=== PATIENT | female | born 1935 | race Caucasian/White ===

== ENCOUNTER 2017-05-17 14:20 | Emergency (ER) | payer OTHER ==
[~2017-05-17] VITALS: Ht 152.4 cm; Wt 58.0 kg
[2017-05-17 14:49] VITALS: BP 144/65; PULSE 70; RESP 17; TEMP 98.4; O2SAT 97
[2017-05-17] MEDS ORDERED: LISI-515 PO (14:56)
[2017-05-17] MEDS ORDERED: ISOS30TA3 PO (14:56)
[2017-05-17] MEDS ORDERED: METO1TAB9 PO (14:56)
[2017-05-17] MEDS ORDERED: ATOR80TA45 PO (14:56)
[2017-05-17] MEDS ORDERED: METF1000 PO (14:56)
[2017-05-17] MEDS ORDERED: GLIP5TAB8 PO (14:56)
[2017-05-17] MEDS ORDERED: CITA20TA4 PO (14:56)
[2017-05-17] MEDS ORDERED: HYDR25TA5 PO (14:56)
[2017-05-17] MEDS ORDERED: OMEP20TA93 PO (14:56)
[2017-05-17] MEDS ORDERED: TRAZ50TA12 PO (14:56)
[2017-05-17] MEDS ORDERED: SODIUM CHLORIDE 0.9% FLUSH 10 ML FLUSH IVF PRN (15:00)
[2017-05-17] MEDS ORDERED: ONDANSETRON HCL 4 MG/2 ML VIAL IVP ONE (15:00)
--- NOTE | 2017-05-17 15:04 | PD ---
HPI Chief Complaint: Fall Time Seen by Provider: 14:46 Travel History International Travel<30 days: No Contact w/Intl Traveler<30days: No Traveled to known affect area: No History of Present Illness HPI The patient is a 81-year-old female who presents to the emergency department via EMS for right hip pain. The patient states she was at the pole earlier today, was rearranging her chair when she tripped and fell landing on her right hip. The patient states she landed on concrete. The patient complains right hip pain, was unable to bear weight after the fall secondary to pain. She denies any loss of consciousness during the fall. She denies any headache, neck pain, shortness of breath, nausea, vomiting, or abdominal pain. She did complain of mild chest pain that developed afterwards, chew be fitted to her angina. The patient was diagnosed with angina by her director of property management in [place], was placed on nitrates and beta blockers after she underwent cardiac catheterization last year. She states there were no stents placed at that time. She did take a nitroglycerin last night for her chest pain, states her last previous episode of angina was several months ago. Pain is located over the lateral right hip, nonradiating, worse with movement and palpation, alleviated at rest. PFSH Past Medical History Depression: Yes High Cholesterol: Yes Chest Pain: Yes Coronary Artery Disease: Yes Diabetes: Yes Patient Takes Glucophage: Yes Hypertension: Yes Insomnia: Yes ?: Not Past Surgical History Appendectomy: Yes Cholecystectomy: Yes Social History Alcohol Use: No Tobacco Use: No Substance Use: No Allergies-Medications (Allergen,Severity, Reaction): Coded Allergies: No Known Allergies (Unverified , 05/17/17) Reported Meds & Prescriptions Reported Meds & Active Scripts Active [facility] (Hydrocodone-Acetaminophen) 5 Mg-325 Mg Tab 1 Tab PO Q6H PRN Reported Metoprolol Succinate ER 24 HR (Metoprolol Succinate) 50 Mg Tab 50 Mg PO DAILY Omeprazole 20 Mg Tab 20 Mg PO DAILY Metformin (Metformin HCl) 1,000 Mg Tab 1,000 Mg PO BIDPC Isosorbide Mononitrate ER (Isosorbide Mononitrate) 30 Mg Rubin 30 Mg PO DAILY Citalopram (Citalopram Hydrobromide) 20 Mg Tab 20 Mg PO DAILY Hydrochlorothiazide 25 Mg Tab 25 Mg PO DAILY Atorvastatin (Atorvastatin Calcium) 80 Mg Tab 80 Mg PO HS Lisinopril 20 Mg Tab 20 Mg PO DAILY Trazodone (Trazodone HCl) 50 Mg Tab 50 Mg PO HS Glipizide 5 Mg Tab 5 Mg PO DAILY Take 30 minutes before a meal Review of Systems Except as stated in HPI: all other systems reviewed are Neg General / Constitutional: No: Fever HENT: No: Lightheadedness Cardiovascular: Positive: Chest Pain or Discomfort, No: Diaphoresis Respiratory: No: Shortness of Breath Gastrointestinal: No: Nausea, Vomiting, Abdominal Pain Musculoskeletal: Positive: Pain Neurologic: No: Headache, Change in Mentation, Paresthesia, Sensory Disturbance Physical Exam Narrative GENERAL: Awake, alert, pleasant 81-year-old female who appears her stated age and is in no acute respiratory distress. SKIN: Focused skin assessment warm/dry. HEAD: Atraumatic. Normocephalic. EYES: Pupils equal and round. No scleral icterus. No injection or drainage. ENT: No nasal bleeding or discharge. Mucous membranes pink and moist. NECK: Trachea midline. No JVD. CARDIOVASCULAR: Regular rate and rhythm. No murmur appreciated. RESPIRATORY: No accessory muscle use. Clear to auscultation. Breath sounds equal bilaterally. GASTROINTESTINAL: Abdomen soft, non-tender, nondistended. MUSCULOSKELETAL: No obvious deformities. No obvious leg length discrepancy. The patient is able flex the right hip to 90, mild pain with internal/external rotation. Tender to palpation lateral aspect of the right hip. No obvious ecchymosis. Positive right dorsalis pedal pulse. Full range of motion of the upper extremity is bilaterally. NEUROLOGICAL: Awake and alert. No obvious cranial nerve deficits. Motor grossly within normal limits. Normal speech. Nonfocal. Sensation is intact lower extremities bilaterally. PSYCHIATRIC: Appropriate mood and affect; insight and judgment normal. Data Data Last Documented VS Vital Signs Date Time Temp Pulse Resp B/P (MAP) Pulse Ox O2 Delivery O2 Flow Rate FiO2 05/17/17 14:49 98.4 70 17 144/65 (91) 97 Room Air Orders Orders Electrocardiogram (05/17/17 14:47) Complete Blood Count With Diff (05/17/17 14:47) Comprehensive Metabolic Panel (05/17/17 14:47) Prothrombin Time / Inr (Pt) (05/17/17 14:47) Act Partial Throm Time (Ptt) (05/17/17 14:47) Femur (Ap & Lat/2vws) (05/17/17 14:47) Pelvis, Ap Only (Routine) (05/17/17 14:47) Iv Access Insert/Monitor (05/17/17 14:47) Oximetry (05/17/17 14:47) Ecg Monitoring (05/17/17 14:47) Ondansetron Inj (Zofran Inj) (05/17/17 15:00) Sodium Chloride 0.9% Flush (Ns Flush) (05/17/17 15:00) Troponin I (05/17/17 14:47) Creatine Kinase (Cpk) (05/17/17 14:47) Ct Pelvis W/O Iv Contrast (05/17/17 ) Labs Laboratory Tests Test 05/17/17 15:15 White Blood Count 7.9 TH/MM3 Red Blood Count 4.42 MIL/MM3 Hemoglobin 13.6 GM/DL Hematocrit 39.6 % Mean Corpuscular Volume 89.6 FL Mean Corpuscular Hemoglobin 30.7 PG Mean Corpuscular Hemoglobin Concent 34.3 % Red Cell Distribution Width 13.6 % Platelet Count 201 TH/MM3 Mean Platelet Volume 8.9 FL Neutrophils (%) (Auto) 67.1 % Lymphocytes (%) (Auto) 20.9 % Monocytes (%) (Auto) 8.5 % Eosinophils (%) (Auto) 2.9 % Basophils (%) (Auto) 0.6 % Neutrophils # (Auto) 5.3 TH/MM3 Lymphocytes # (Auto) 1.6 TH/MM3 Monocytes # (Auto) 0.7 TH/MM3 Eosinophils # (Auto) 0.2 TH/MM3 Basophils # (Auto) 0.0 TH/MM3 CBC Comment DIFF FINAL Differential Comment Prothrombin Time 11.1 SEC Prothromb Time International Ratio 1.1 RATIO Activated Partial Thromboplast Time 25.0 SEC Blood Urea Nitrogen 19 MG/DL Creatinine 0.93 MG/DL Random Glucose 82 MG/DL Total Protein 6.7 GM/DL Albumin 3.5 GM/DL Calcium Level 10.0 MG/DL Alkaline Phosphatase 66 U/L Aspartate Amino Transf (AST/SGOT) 12 U/L Alanine Aminotransferase (ALT/SGPT) 21 U/L Total Bilirubin 0.4 MG/DL Sodium Level 139 MEQ/L Potassium Level 4.0 MEQ/L Chloride Level 101 MEQ/L Carbon Dioxide Level 29.9 MEQ/L Anion Gap 8 MEQ/L Estimat Glomerular Filtration Rate 58 ML/MIN Total Creatine Kinase 43 U/L Troponin I LESS THAN 0.02 NG/ML MDM Medical Decision Making Medical Screen Exam Complete: Yes Emergency Medical Condition: Yes Medical Record Reviewed: Yes Interpretation(s) EKG reveals normal sinus rhythm with a rate of 67. Q wave noted in lead 3. Last Impressions Pelvis X-Ray 05/17/[id number] Signed Impressions: Service Date/Time: Wednesday, May 17, 2017 15:28 - CONCLUSION: Negative for fracture Vijay Batres MD FACR Femur X-Ray 05/17/[id number] Signed Impressions: Service Date/Time: Wednesday, May 17, 2017 15:29 - CONCLUSION: 1. No acute fracture the femur identified. 2. There is atherosclerotic plaquing and superficial femoral artery. Elmer Batres MD Laboratory Tests Test 05/17/17 15:15 White Blood Count 7.9 TH/MM3 Red Blood Count 4.42 MIL/MM3 Hemoglobin 13.6 GM/DL Hematocrit 39.6 % Mean Corpuscular Volume 89.6 FL Mean Corpuscular Hemoglobin 30.7 PG Mean Corpuscular Hemoglobin Concent 34.3 % Red Cell Distribution Width 13.6 % Platelet Count 201 TH/MM3 Mean Platelet Volume 8.9 FL Neutrophils (%) (Auto) 67.1 % Lymphocytes (%) (Auto) 20.9 % Monocytes (%) (Auto) 8.5 % Eosinophils (%) (Auto) 2.9 % Basophils (%) (Auto) 0.6 % Neutrophils # (Auto) 5.3 TH/MM3 Lymphocytes # (Auto) 1.6 TH/MM3 Monocytes # (Auto) 0.7 TH/MM3 Eosinophils # (Auto) 0.2 TH/MM3 Basophils # (Auto) 0.0 TH/MM3 CBC Comment DIFF FINAL Differential Comment Prothrombin Time 11.1 SEC Prothromb Time International Ratio 1.1 RATIO Activated Partial Thromboplast Time 25.0 SEC Blood Urea Nitrogen 19 MG/DL Creatinine 0.93 MG/DL Random Glucose 82 MG/DL Total Protein 6.7 GM/DL Albumin 3.5 GM/DL Calcium Level 10.0 MG/DL Alkaline Phosphatase 66 U/L Aspartate Amino Transf (AST/SGOT) 12 U/L Alanine Aminotransferase (ALT/SGPT) 21 U/L Total Bilirubin 0.4 MG/DL Sodium Level 139 MEQ/L Potassium Level 4.0 MEQ/L Chloride Level 101 MEQ/L Carbon Dioxide Level 29.9 MEQ/L Anion Gap 8 MEQ/L Estimat Glomerular Filtration Rate 58 ML/MIN Total Creatine Kinase 43 U/L Troponin I LESS THAN 0.02 NG/ML CT of the pelvis is negative for fracture or soft tissue hematoma Differential Diagnosis Differential diagnosis includes hip fracture, hip dislocation, contusion, pelvic fracture, greater trochanter fracture, angina, acute coronary syndrome, mechanical fall. Narrative Course IV was established, labs are drawn and sent, and the patient was placed on cardiac telemetry monitoring and continuous pulse oximetry monitoring. EKG was ordered and interpreted. X-ray the pelvis and right femur were obtained. The patient was administered morphine, Zofran, placed on IV fluids. The patient's x -ray was negative. Therefore, noncontrast CT the pelvis was performed. This was negative for fracture. Patient's troponin is unremarkable, EKG reveals Q waves in lead 3, otherwise unremarkable. She is chest pain-free and has a history of angina. She will follow-up with a [facility] director of property management on an outpatient basis. She was given a trial of ambulation at 5:11 PM. The patient was able to ambulate. The patient was discharged home. She is advised to return if symptoms worsen or progress. Diagnosis Primary Impression: Right hip pain Patient Instructions: General Instructions Additional Instructions: Medication as directed. Follow-up with your primary physician. Follow-up with cardiology on an outpatient basis. Follow-up with orthopedics as needed. Med/Other Pt SpecificInfo: Prescription(s) given Scripts Hydrocodone-Acetaminophen ([facility]) 5 Mg-325 Mg Tab 1 TAB PO Q6H Y for PAIN, #12 TAB 0 Refills Prov: Trung Carr MD 05/17/17 Disposition: 01 DISCHARGE HOME Condition: Stable Trung Carr MD May 17, 2017 15:04
--- NOTE | 2017-05-17 15:58 | RADRPT ---
EXAM DATE/TIME: 05/17/2017 15:28 [facility] COMPARISON: No previous studies available for comparison. INDICATIONS : Tripped and fell with lounge chair at pool deck 3 hours ago. MEDICAL HISTORY : None. SURGICAL HISTORY : Heart catherization. ENCOUNTER: Initial ACUITY: 1 day PAIN SCORE: 6/10 LOCATION: Right pelvis greater trochanter. FINDINGS: A single frontal view of the pelvis demonstrates no evidence of fracture. The bony pelvic ring is in tact. Bony mineralization is normal. Mild degenerative changes are evident. The soft tissues are in tact. Degenerative changes lower lumbar spine sutures from previous abdominal surgery CONCLUSION: Negative for fracture Vijay Batres MD FACR on May 17, 2017 at 15:56 Board Certified Radiologist. This report was verified electronically.
--- NOTE | 2017-05-17 15:59 | RADRPT ---
EXAM DATE/TIME: 05/17/2017 15:29 [facility] COMPARISON: PELVIS AP ONLY, May 17, 2017, 15:28. INDICATIONS : Tripped and fell 3 hours ago with lounge chair. MEDICAL HISTORY : None. SURGICAL HISTORY : Heart catherization. ENCOUNTER: Initial ACUITY: 1 day PAIN SCORE: 6/10 LOCATION: Right greater trochanter. FINDINGS: Two view examination of the right femur demonstrates no evidence of fracture or dislocation. Bony mi neralization is normal. The soft tissue structures are intact. CONCLUSION: 1. No acute fracture the femur identified. 2. There is atherosclerotic plaquing and superficial femoral artery. Elmer Batres MD on May 17, 2017 at 15:57 Board Certified Radiologist. This report was verified electronically.
[2017-05-17 16:37] LABS: AUTOMATED NEUTROPHIL # 5.3 TH/MM3 (1.8-7.7); BASOPHIL % 0.6 % (0.0-2.0); EOSINOPHIL # 0.2 TH/MM3 (0-0.4); EOSINOPHIL % 2.9 % (0.0-4.0); HEMATOCRIT 39.6 % (35.0-46.0); HEMOGLOBIN 13.6 GM/DL (11.6-15.3); LYMPH % 20.9 % (9.0-44.0); LYMPHOCYTE # 1.6 TH/MM3 (1.0-4.8); MEAN CELL VOLUME 89.6 FL (80.0-100.0); MEAN CORPUSCULAR HEMOGLOBIN 30.7 PG (27.0-34.0); MEAN CORPUSCULAR HGB CONC 34.3 % (32.0-36.0); MEAN PLATELET VOLUME 8.9 FL (7.0-11.0); MONO % 8.5 % (0.0-8.0); MONOCYTE # 0.7 TH/MM3 (0-0.9); NEUT % 67.1 % (16.0-70.0); PLATELET COUNT 201 TH/MM3 (150-450); RED BLOOD COUNT 4.42 MIL/MM3 (4.00-5.30); RED CELL DISTRIBUTION WIDTH 13.6 % (11.6-17.2); WHITE BLOOD COUNT 7.9 TH/MM3 (4.0-11.0)
[2017-05-17 16:44] LABS: INTERNATIONAL NORMALIZED RATIO 1.1 RATIO; PROTHROMBIN TIME - PATIENT 11.1 SEC (9.8-11.6)
[2017-05-17 16:52] LABS: ALBUMIN 3.5 GM/DL (3.4-5.0); ALT (GPT) 21 U/L (10-53); AST (GOT) 12 U/L (15-37); BICARBONATE 29.9 MEQ/L (21.0-32.0); BLOOD UREA NITROGEN 19 MG/DL (7-18); CHLORIDE 101 MEQ/L (98-107); CREATININE 0.93 MG/DL (0.50-1.00); GLOMERULAR FILTRATION RATE 58 ML/MIN (>89); GLUCOSE,RANDOM 82 MG/DL (74-106); SODIUM (NA) 139 MEQ/L (136-145)
[2017-05-17 16:55] LABS: ALKALINE PHOSPHATASE 66 U/L (45-117); TOTAL BILIRUBIN ADULT 0.4 MG/DL (0.2-1.0); TOTAL PROTEIN 6.7 GM/DL (6.4-8.2); TROPONIN I LESS THAN 0.02 NG/ML (0.02-0.05)
--- NOTE | 2017-05-17 16:56 | RADRPT ---
EXAM DATE/TIME: 05/17/2017 16:22 [facility] COMPARISON: No previous studies available for comparison. INDICATIONS : Right hip pain due to fall. ORAL CONTRAST: No oral contrast ingested. RADIATION DOSE: 11.26 CTDIvol (mGy) MEDICAL HISTORY : Hypertension. Diabetes mellitus type 2. SURGICAL HISTORY : Appendectomy. Cholecystectomy. ENCOUNTER: Initial ACUITY: 1 day PAIN SCALE: 6/10 LOCATION: Right hip TECHNIQUE: Volumetric scanning of the pelvis was performed. Using automated exposure control and adjustment of the mA and/or kV according to patient size, radiation dose was kept as low as reasonably achievable t o obtain optimal diagnostic quality images. DICOM format image data is available electronically for review and comparison. FINDINGS: BOWEL/MESENTERY: The visualized small and large bowel demonstrate no acute abnormality. There is no free fluid. BLADDER: There is no wall thickening or mass. RETROPERITONEUM: There is no aneurysm or lymphadenopathy. REPRODUCTIVE: Within normal limits. INGUINAL: There is no lymphadenopathy or hernia. MUSCULOSKELETAL: Within normal limits for patient age. CONCLUSION: Negative for fracture or soft tissue hematoma. Vijay Batres MD FACR on May 17, 2017 at 16:54 Board Certified Radiologist. This report was verified electronically.
[2017-05-17] MEDS ORDERED: NORC5TAB PO (17:13)
--- NOTE | 2017-05-19 00:23 | EKG ---
Date Performed: 05/17/2017 Time Performed: 15:05:25 PTAGE: 81 years EKG: Sinus rhythm POSSIBLE INFERIOR MYOCARDIAL INFARCTION BORDERLINE ECG NO PREVIOUS TRACING DOCTOR: Junior Taylor Interpretating Date/Time 05/19/2017 00:23:19
== END 2017-05-17 17:30 | disposition home or self-care (01) ==
LOC: NEPD 14:20
DX: M25.551 Pain in right hip (principal); E11.9 Type 2 diabetes mellitus without complications; E78.00 Pure hypercholesterolemia, unspecified; I10 Essential (primary) hypertension; I25.10 Atherosclerotic heart disease of native coronary artery without angina pectoris; R07.9 Chest pain, unspecified; Z79.84 Long term (current) use of oral hypoglycemic drugs
CPT/HCPCS: 72170; 72192; 73552; 80053; 82550; 84484; 85025; 85610; 85730; 93005; 96374; 99285; J2405

== ENCOUNTER 2017-05-27 21:26 | Emergency (ER) | payer OTHER ==
[~2017-05-27] VITALS: Ht 152.4 cm; Wt 55.0 kg
[~2017-05-27 21:26] MED LIST: ATOR80TA45 PO; CITA20TA4 PO; GLIP5TAB8 PO; HYDR25TA5 PO; ISOS30TA3 PO; LISI-515 PO; METF1000 PO; METO1TAB9 PO; NORC5TAB PO; OMEP20TA93 PO; TRAZ50TA12 PO
[2017-05-27 22:19] VITALS: BP 136/64; PULSE 73; RESP 18; TEMP 98.3; O2SAT 94
== END 2017-05-27 23:44 | disposition left against medical advice (07) ==
LOC: NED 21:26
DX: M79.604 Pain in right leg (principal); Z53.21 Procedure and treatment not carried out due to patient leaving prior to being seen by health care provider
CPT/HCPCS: 99281